=== PATIENT | male | born 2005 | race Caucasian/White ===

== ENCOUNTER 2024-04-20 22:56 | Emergency (ER) | payer OTHER, SELFPAY ==
[2024-04-20 23:02] VITALS: BP 181/90
[2024-04-20] MEDS: MOTRIN 600 MG PO (23:36)
[2024-04-20] MEDS: DILAUDID 0.5 MG IV (23:53)
[2024-04-20] MEDS: ZOFRAN 4 MG IV (23:53)
--- NOTE | 2024-04-21 01:08 | ED.MUSCINJ ---
HPI-Injury
General
Chief Complaint: Musculo-Skeletal Complaint
Source: patient
Exam Limitations: none
Time Seen by Provider: 04/20/24 23:21
Nursing documentation reviewed up to this point in time: agreed with
History of Present Illness-Injury
Is this injury a work related problem?: No
Is pt an associate of [facility]?: No
Initial Injury comments:
Patient fell while snowboarding. Denies hitting his head. Complains of pain to his left upper arm. Incident occurred just [employer]
Past History
Past History
ED Past Medical History: None
ED Past Surgical History: None
Review of Systems
Review of Systems
Allergies reviewed?: Yes
All Other Systems: ROS reviewed and negative except as documented in HPI and ROS
Constitutional: Reports no symptoms
Musculoskeletal: Reports joint pain (Pain to left mid upper arm)
Skin: Reports no symptoms
Neurological: Reports no symptoms
Psychiatric: Reports no symptoms
Musculoskeletal Injury Exam
Musculoskeletal Injury Exam
Left Upper Arm:
Pain with Movement?: Moderate
Tender to palpation?: Moderate
Soft tissue swelling?: Mild
External deformity and angulation?: None
Joint effusion?: None
Contusion?: None
Hematoma-local bleeding into tissue?: Moderate
Strain- Sprain- Tear (Connective tissue injury)?: Moderate
Crepitus with movement?: No
Joint instability?: No
Malalignment/deformity?: No
Range of motion: Limited
Distal skin color and temperature: normal-warm & good color
Capillary Refill: normal
Normal distal neurovascular exam?: Yes
Peripheral Pulses: radial (left): 3+
Phy Exam
General Physical Exam
General Presentation: well appearing and moderate distress
General age: appears stated age
General Skin: warm and dry
General Habitus: normal
General Mental: alert
General Hydration: appears well hydrated
Musculoskeletal Exam
Musculoskeletal Exam: neuro vasc intact
Skin Exam
Skin Exam: normal color, warm/dry and no rash
Psychiatric Exam
Psychiatric Exam: normal mood/affect
Injury Course
Orders/Labs/Results
Orders:
Orders
04/20/24 22:57
Humerus, Left 2 Views [CR Humerus - Left Min 2 Views*] Urgent
Comment:
Reason For Exam: pain s/p fall
04/20/24 23:30
Long Arm Left-Treatment ONCE
Sling Left-Treatment ONCE
Ibuprofen [Motrin] 600 mg PO NOW STA
04/20/24 23:51
HYDROmorphone [Dilaudid] 0.5 mg .ROUTE .STK-MED ONE
Ondansetron Injectable [Zofran] 4 mg .ROUTE .STK-MED ONE
04/20/24 23:52
Ondansetron Injectable [Zofran] 4 mg IV NOW STA
04/20/24 23:53
HYDROmorphone [Dilaudid] 0.5 mg IV NOW STA
04/21/24 00:00
CR Humerus - Left Min 2 Views* Urgent
Reason For Exam: displaced during splinting
Procedures
Splinting/Sling Placement
Left Arm:
Pre-splint extermity exam: neurovascular intact
Type of splint: marian wrap, sugar-tong and posterior long arm
Type of sling: sling and swath
Normal distal neurovascular exam?: Yes
*Radiology
Radiology exam reviewed: radiology read reviewed
*Critical Care Note
Total Time (30-74mins, 75-104mins- exclusive of procedures): Not Applicable
Update Note
Update Note:
Familoy requesting Dr. Nell Diaz notified of injury. Will follow up with patient in AM.
ED Attending Note
-
Portions of this chart may have been created with voice recognition software.� Occasional wrong word or��sound alike� substitutions may have occurred due to the inherent limitations of voice recognition software.
Discharge Plan
Departure
Patient Disposition: Home (Routine Discharge)
Date of Disposition: 04/20/24
Time of Disposition: 23:30
Patient with high blood pressure during this ER visit?: No
Condition: Good
Covid-19: Not Applicable
Discharge Problem:
Fracture, humerus closed
Instructions: Ibuprofen, How to Use a Shoulder Sling, Using Cold for Pain, Splint Care, Shoulder or upper arm fracture
Referrals:
Jimy Camejo MD [Active] - Tomorrow
Interventions
Interventions:
*Risk Screen - Suicide Last Done: 04/21/24 00:43
*General Assessment Last Done: 04/20/24 23:02
*Neglect/Abuse Screening Last Done: 04/21/24 00:43
ED- Fall Risk Assessment Last Done: 04/21/24 00:41
*Nursing Disposition Last Done: 04/21/24 00:43
ED-Musculoskeletal Assessment Last Done: 04/21/24 00:41
Discharge Date and Time
Discharge Date/Time: 04/21/24 00:44
Print Language: WELSH
== END 2024-04-21 00:44 | disposition home or self-care (01) ==
LOC: EMR 22:56
PROVIDERS: EMERGENCY PHYSICIAN Emergency Medicine
DX: S42.322A Displaced transverse fracture of shaft of humerus, left arm, initial encounter for closed fracture (principal); W19.XXXA Unspecified fall, initial encounter; Y93.23 Activity, snow (alpine) (downhill) skiing, snowboarding, sledding, tobogganing and snow tubing
CPT/HCPCS: 29105; 99284; 96374; 96375; 73060